=== PATIENT | female | born 1955 | race Caucasian/White ===

== ENCOUNTER 2016-07-10 15:39 | Emergency (ER) | payer BC ==
[2016-07-10] MEDS ORDERED: ARMOUR THYROID PO (15:50)
[2016-07-10] MEDS ORDERED: XANAX0.5 M1 PO (15:50)
[2016-07-10] MEDS ORDERED: OMEPRAZOLE20 M3 PO (15:50)
[2016-07-10] MEDS ORDERED: ARMOUR THYROID90 M2 PO (16:15)
[2016-07-10] MEDS ORDERED: CRINONE1.125 G1 VG (16:17)
[2016-07-10] MEDS ORDERED: VITAMIN D350000 UNI1 PO (16:18)
[2016-07-10 16:47] LABS: BASO % 0.5 % (0-2); BASO ABSOLUTE COUNT 0.1 tho/cmm (0.0-0.2); EOSINOPHIL ABSOLUTE COUNT 0.4 tho/cmm (0.0-0.7); HCT-HEMATOCRIT 38.9 % (34.0-49.0); HGB-HEMOGLOBIN 13.3 gm/dl (12.0-15.5); IMMATURE GRANULOCYTES ABSOLUTE 0.04 tho/cmm (0-0.03); IMMATURE GRANULOCYTES PERCENT 0.4 % (0-0.3); LYMPH % 45.6 % (20-45); LYMPH ABSOLUTE COUNT 4.7 tho/cmm (0.8-4.5); MCH (MEAN CORPUSCULAR HGB) 31.1 pg (28.0-32.0); MCHC MEAN CORPUSCULAR HGB CONC 34.2 % (32.0-36.0); MCV (MEAN CELL VOLUME) 90.9 fl (82.0-96.0); MEAN PLATELET VOLUME 9.4 cmc (9.4-12.4); MONO % 6.5 % (0-12); MONOCYTE ABSOLUTE COUNT 0.7 tho/cmm (0.0-1.2); NEUTROPHIL ABSOLUTE COUNT 4.4 tho/cmm (1.6-8.0); NEUTROPHIL-AUTOMATED 4.4 tho/cmm (1.6-8.0); PLATELET COUNT 350 tho/cmm (150-450); RED BLOOD COUNT 4.28 mil/cmm (4.00-5.20); RED CELL DISTRIBUTION WIDTH 13.5 % (12.4-16.4); WHITE BLOOD COUNT 10.3 tho/cmm (4.0-10.0)
[2016-07-10 16:53] LABS: ALB/GLOB RATIO 0.8 (0.8-2.0); ALBUMIN 3.2 g/dl (3.5-5.0); ALKALINE PHOSPHATASE 130 U/L (33-138); ALT/SGPT 30 U/L (12-78); ANION GAP 11 mmol/L (0-20); AST/SGOT 20 U/L (10-40); BILIRUBIN,TOTAL 0.2 mg/dl (0-1.5); BLOOD UREA NITROGEN 6 mg/dl (6-24); CALCIUM 9.4 mg/dl (8.5-10.5); CARBON DIOXIDE-VENOUS 28 mmol/L (22-32); CHLORIDE 106 mmol/l (96-110); CREATININE 1.01 mg/dl (0.50-1.10); GLUCOSE 78 mg/dL (70-110); LIPASE 82 U/L (73-393); POTASSIUM 3.9 mmol/L (3.7-5.1); SODIUM 141 mmol/L (135-145); eGFR VALUE FOR BLACK 70 mL/Min
[2016-07-10 19:35] LABS: URINE BILIRUBIN NEGATIVE (NEG); URINE BLOOD NEGATIVE (NEG); URINE GLUCOSE (UA) NEGATIVE (NEG); URINE KETONE NEGATIVE (NEG); URINE LEUKOCYTE ESTERASE NEGATIVE (NEG); URINE NITRITE NEGATIVE (NEG); URINE PROTEIN NEGATIVE (NEG); URINE SPECIFIC GRAVITY 1.005 (1.003-1.030)
[2016-07-10 19:37] LABS: URINE APPEARANCE CLEAR; URINE COLOR PALE YELLOW
[2016-07-10] MEDS ORDERED: CYCLOBENZAPRINE10 M1 PO (20:14)
[2016-07-10] MEDS ORDERED: NORCO 5-325 TA1 EACH PO (20:14)
== END 2016-07-10 20:21 ==
LOC: EDMED 15:39
PROVIDERS: Emergency Medicine
DX: R10.31 Right lower quadrant pain (principal); R11.0 Nausea; Z90.49 Acquired absence of other specified parts of digestive tract
CPT/HCPCS: J2270; J2405; J7030; Q9967

== ENCOUNTER 2016-08-01 00:40 | Emergency (ER) | payer BC ==
[~2016-08-01 00:40] MED LIST: ARMOUR THYROID PO; ARMOUR THYROID90 M2 PO; CRINONE1.125 G1 VG; CYCLOBENZAPRINE10 M1 PO; NORCO 5-325 TA1 EACH PO; OMEPRAZOLE20 M3 PO; VITAMIN D350000 UNI1 PO; XANAX0.5 M1 PO
[2016-08-01 01:30] LABS: URINE BILIRUBIN NEGATIVE (NEG); URINE BLOOD NEGATIVE (NEG); URINE GLUCOSE (UA) NEGATIVE (NEG); URINE KETONE NEGATIVE (NEG); URINE LEUKOCYTE ESTERASE NEGATIVE (NEG); URINE NITRITE NEGATIVE (NEG); URINE PROTEIN NEGATIVE (NEG)
[2016-08-01 01:32] LABS: URINE APPEARANCE CLEAR; URINE COLOR YELLOW
[2016-08-01 01:45] LABS: BASO % 0.5 % (0-2); BASO ABSOLUTE COUNT 0.1 tho/cmm (0.0-0.2); EOS % 1.9 % (0-7); EOSINOPHIL ABSOLUTE COUNT 0.2 tho/cmm (0.0-0.7); HCT-HEMATOCRIT 41.5 % (34.0-49.0); HGB-HEMOGLOBIN 14.5 gm/dl (12.0-15.5); IMMATURE GRANULOCYTES ABSOLUTE 0.04 tho/cmm (0-0.03); IMMATURE GRANULOCYTES PERCENT 0.3 % (0-0.3); LYMPH % 41.7 % (20-45); LYMPH ABSOLUTE COUNT 5.1 tho/cmm (0.8-4.5); MCH (MEAN CORPUSCULAR HGB) 31.9 pg (28.0-32.0); MCHC MEAN CORPUSCULAR HGB CONC 34.9 % (32.0-36.0); MCV (MEAN CELL VOLUME) 91.4 fl (82.0-96.0); MEAN PLATELET VOLUME 9.3 cmc (9.4-12.4); MONO % 7.2 % (0-12); MONOCYTE ABSOLUTE COUNT 0.9 tho/cmm (0.0-1.2); NEUTROPHIL ABSOLUTE COUNT 5.9 tho/cmm (1.6-8.0); NEUTROPHIL-AUTOMATED 5.9 tho/cmm (1.6-8.0); NEUTROPHILS % 48.4 % (40-80); PLATELET COUNT 378 tho/cmm (150-450); RED BLOOD COUNT 4.54 mil/cmm (4.00-5.20); RED CELL DISTRIBUTION WIDTH 13.6 % (12.4-16.4); WHITE BLOOD COUNT 12.2 tho/cmm (4.0-10.0)
[2016-08-01 01:53] LABS: ANION GAP 14 mmol/L (0-20); BLOOD UREA NITROGEN 11 mg/dl (6-24); CARBON DIOXIDE-VENOUS 24 mmol/L (22-32); CHLORIDE 106 mmol/l (96-110); CREATININE 0.92 mg/dl (0.50-1.10); GLUCOSE 96 mg/dL (70-110); POTASSIUM 3.9 mmol/L (3.7-5.1); SODIUM 140 mmol/L (135-145); eGFR VALUE FOR BLACK 78 mL/Min
[2016-08-01] MEDS ORDERED: ZOFRAN ODT4 MG PO (02:13)
== END 2016-08-01 02:19 ==
LOC: EDMED 00:40
PROVIDERS: Emergency Medicine
DX: R10.31 Right lower quadrant pain (principal); R11.2 Nausea with vomiting, unspecified; Z90.49 Acquired absence of other specified parts of digestive tract

== ENCOUNTER 2016-08-17 05:32 | Day surgery (SDC) | payer BC ==
[~2016-08-17 05:32] MED LIST changes: +ZOFRAN ODT4 MG PO
[2016-08-17] MEDS ORDERED: ARMOUR THYROID60 M2 PO (06:30)
[2016-08-17] MEDS ORDERED: ZOFRAN4 M2 PO (06:34)
== END 2016-08-17 11:00 ==
LOC: SRG 05:32 → SHSB 05:36 → ORW 07:32 → PACU 08:47 → SHSB 09:45
PROC: 0DTJ4ZZ Resection of Appendix, Percutaneous Endoscopic Approach (ICD-10-PCS; principal; 2016-08-17)
DX: K63.5 Polyp of colon (principal); E03.9 Hypothyroidism, unspecified; F41.9 Anxiety disorder, unspecified; K21.9 Gastro-esophageal reflux disease without esophagitis; F17.210 Nicotine dependence, cigarettes, uncomplicated; Z79.899 Other long term (current) drug therapy; Z88.2 Allergy status to sulfonamides; Z88.5 Allergy status to narcotic agent; Z90.49 Acquired absence of other specified parts of digestive tract; Z80.0 Family history of malignant neoplasm of digestive organs; Z90.710 Acquired absence of both cervix and uterus; Z90.89 Acquired absence of other organs
CPT/HCPCS: J0690; J2405; J3010; J7030